=== PATIENT | male | born 1990 | race Two or more races ===

== ENCOUNTER 2021-01-19 18:53 | Emergency (ER) | payer MEDICAID, OTHER ==
[~2021-01-19] VITALS: Ht 167.6 cm; Wt 63.5 kg
[2021-01-19] MEDS ORDERED: ONDANSETRON HCL 4 MG/2 ML VIAL IV ONE (19:30)
[2021-01-19] MEDS ORDERED: SODIUM CHLORIDE 0.9% 3,000 ML IV ONE (19:30)
[2021-01-19] MEDS ORDERED: SODIUM CHLORIDE 0.9% 1,000 ML IVB ONE (19:30)
[2021-01-19] MEDS ORDERED: LORazepam 2MG/ML-1ML VIAL IV ONE (19:30)
[2021-01-19 20:15] VITALS: BP 113/61
[2021-01-19 21:32] LABS: Basophils # (auto) 0.1 10 ^3/uL (0-0.2); Basophils % (auto) 0.8 % (0.0-2.0); Eosinophils # (auto) 0.1 10 ^3/uL (0-0.8); Eosinophils % (auto) 0.9 % (0.0-7.0); Hematocrit 44.7 % (41.0-53.0); Hemoglobin 15.7 g/dL (13.5-17.5); Lymphocytes # (auto) 3.5 10 ^3/uL (0.4-5.4); Lymphocytes % (auto) 29.8 % (10.0-50.0); Mean Corpuscular Hemoglobin 33.2 pg (28.0-32.0); Mean Corpuscular Hgb Conc. 35.1 g/dL (32.0-36.0); Mean Corpuscular Volume 94.6 fL (80.0-100.0); Monocytes # (auto) 0.5 10 ^3/uL (0-1.3); Monocytes % (auto) 4.1 % (0.0-12.0); Neutrophils # (auto) 7.5 10 ^3/uL (1.6-8.6); Neutrophils % (auto) 64.4 % (37.0-80.0); Red Blood Cells 4.73 10^6/uL (4.5-5.90); Red Cell Distribution Width 12.8 % (11.8-14.3); White Blood Cell 11.6 10^3/uL (4.4-10.8)
[2021-01-19 21:42] LABS: Albumin 3.9 g/dL (3.4-5.0); Calcium 8.2 mg/dL (8.5-10.1); Potassium 3.7 mmol/L (3.5-5.1)
[2021-01-19 21:44] LABS: Salicylate 4.1 mg/dL (2.8-20.0)
[2021-01-19 21:47] LABS: BUN/Creatinine Ratio 9.4; Bilirubin, Total 0.3 mg/dL (0.2-1.0); Total Protein 7.3 g/dL (6.4-8.2)
[2021-01-19 21:49] LABS: Acetaminophen < 2.0 ug/mL (10-30)
[2021-01-19] MEDS ORDERED: PRENATAL VITAMIN TAB PO ONE (22:45)
[2021-01-19 23:43] LABS: Amphetamine Screen, Urine NEGATIVE (NEGATIVE); Barbiturate Scree,Urine NEGATIVE (NEGATIVE); Benzodiazephine Screen, Urine NEGATIVE (NEGATIVE); Cannabinoid Screen, Urine POSITIVE (NEGATIVE); Cocaine Screen, Urine NEGATIVE (NEGATIVE); Opiate Scree,Urine NEGATIVE (NEGATIVE); Phencyclidine Screen, Urine NEGATIVE (NEGATIVE)
== END 2021-01-19 23:50 | disposition left against medical advice (07) ==
LOC: EDBD 18:53 → ER 18:59
DX: S00.81XA Abrasion of other part of head, initial encounter (principal); F10.129 Alcohol abuse with intoxication, unspecified; R27.0 Ataxia, unspecified; Y90.8 Blood alcohol level of 240 mg/100 ml or more; X58.XXXA Exposure to other specified factors, initial encounter; Y93.89 Activity, other specified; Y92.89 Other specified places as the place of occurrence of the external cause; Y99.8 Other external cause status
CPT/HCPCS: 36415; 80053; 80307; 80320; 80329; 85025; 96361; 96374; 96375; 99284; J2060; J2405

== ENCOUNTER 2022-07-13 19:10 | Emergency (ER) | payer MEDICAID ==
[~2022-07-13] VITALS: Ht 175.3 cm; Wt 73.0 kg
[2022-07-13 21:27] LABS: Basophils # (auto) 0.1 10 ^3/uL (0-0.2); Basophils % (auto) 0.9 % (0.0-2.0); Eosinophils # (auto) 0.2 10 ^3/uL (0-0.8); Nucleated Red Blood Cells % 0.1 %
[2022-07-13 21:29] LABS: Hematocrit 45.1 % (41.0-53.0); Hemoglobin 15.8 g/dL (13.5-17.5); Lymphocytes % (auto) 39.8 % (10.0-50.0); Mean Corpuscular Hemoglobin 34.8 pg (28.0-32.0); Mean Corpuscular Volume 99.4 fL (80.0-100.0); Monocytes # (auto) 0.4 10 ^3/uL (0-1.3); Monocytes % (auto) 4.9 % (0.0-12.0); Neutrophils # (auto) 3.9 10 ^3/uL (1.6-8.6); Neutrophils % (auto) 51.4 % (37.0-80.0); Red Blood Cells 4.54 10^6/uL (4.5-5.90); Red Cell Distribution Width 14.8 % (11.8-14.3); White Blood Cell 7.6 10^3/uL (4.4-10.8)
[2022-07-13 21:35] LABS: BUN/Creatinine Ratio 12.1; Calcium 8.8 mg/dL (8.5-10.1); Potassium 3.5 mmol/L (3.5-5.1)
[2022-07-13 21:40] LABS: Bilirubin, Total 0.2 mg/dL (0.2-1.0); Total Protein 7.4 g/dL (6.4-8.2)
[2022-07-14 05:13] VITALS: BP 127/77
[2022-07-14 05:25] LABS: Urine Blood Negative /uL (Negative); Urine Specific Gravity 1.019 (1.001-1.035)
[2022-07-14 05:57] LABS: Amphetamine Screen, Urine NEGATIVE (NEGATIVE); Barbiturate Scree,Urine NEGATIVE (NEGATIVE); Cannabinoid Screen, Urine POSITIVE (NEGATIVE)
[2022-07-14 06:07] LABS: Benzodiazephine Screen, Urine NEGATIVE (NEGATIVE); Cocaine Screen, Urine NEGATIVE (NEGATIVE); Opiate Scree,Urine NEGATIVE (NEGATIVE); Phencyclidine Screen, Urine NEGATIVE (NEGATIVE)
== END 2022-07-14 07:05 | disposition home or self-care (01) ==
LOC: ER 19:10 → EDUNIT# 19:10 → EDBD 19:10 → ER 07-14 07:05
DX: R51.9 Headache, unspecified (principal); R07.89 Other chest pain; T51.0X1A Toxic effect of ethanol, accidental (unintentional), initial encounter; Y92.89 Other specified places as the place of occurrence of the external cause
CPT/HCPCS: 36415; 70450; 71045; 80053; 80307; 80320; 80329; 81003; 85025

== ENCOUNTER 2022-08-30 12:58 | Inpatient (IN) | payer MEDICAID ==
[~2022-08-30] VITALS: Ht 170.2 cm; Wt 80.8 kg
[2022-08-30] MEDS ORDERED: SODIUM CHLORIDE 0.9% 1,000 ML IV ONE ×2 (14:00)
[2022-08-30 14:43] LABS: Basophils # (auto) 0.1 10 ^3/uL (0-0.2); Basophils % (auto) 0.7 % (0.0-2.0); Eosinophils # (auto) 0 10 ^3/uL (0-0.8); Eosinophils % (auto) 0.1 % (0.0-7.0); Hematocrit 38.7 % (41.0-53.0); Hemoglobin 13.4 g/dL (13.5-17.5); Lymphocytes # (auto) 0.6 10 ^3/uL (0.4-5.4); Lymphocytes % (auto) 6.1 % (10.0-50.0); Mean Corpuscular Hemoglobin 33.8 pg (28.0-32.0); Mean Corpuscular Hgb Conc. 34.5 g/dL (32.0-36.0); Mean Corpuscular Volume 97.9 fL (80.0-100.0); Monocytes # (auto) 0.6 10 ^3/uL (0-1.3); Monocytes % (auto) 5.8 % (0.0-12.0); Neutrophils # (auto) 8.7 10 ^3/uL (1.6-8.6); Neutrophils % (auto) 87.3 % (37.0-80.0); Nucleated Red Blood Cells % 0.1 %; Red Blood Cells 3.95 10^6/uL (4.5-5.90); Red Cell Distribution Width 14.4 % (11.8-14.3)
[2022-08-30] MEDS ORDERED: LORazepam 2MG/ML-1ML VIAL ONE (15:22)
[2022-08-30 15:27] LABS: Albumin 3.6 g/dL (3.4-5.0); BUN/Creatinine Ratio 13.2 (10.0-20.0); Calcium 9.6 mg/dL (8.5-10.1); Potassium 3.2 mmol/L (3.5-5.1)
[2022-08-30 15:30] LABS: Bilirubin, Total 0.8 mg/dL (0.2-1.0); Total Protein 7.5 g/dL (6.4-8.2)
[2022-08-30] MEDS ORDERED: LORazepam 2MG/ML-1ML VIAL IV ONE ×2 (15:30→18:00)
[2022-08-30] MEDS ORDERED: DOCUSATE SOD 100 MG CAP PO PRN (18:45)
[2022-08-30] MEDS ORDERED: POTASSIUM CHL 20 Meq TABLET PO ONE (18:45)
[2022-08-30] MEDS ORDERED: ONDANSETRON HCL 4 MG/2 ML VIAL IV PRN (18:45)
[2022-08-30] MEDS ORDERED: LORazepam 2MG/ML-1ML VIAL IV PRN (18:45)
[2022-08-30] MEDS: SODIUM CHLORIDE 0.9% 1,000 ML IV SCH (19:13)
[2022-08-30] MEDS: MUPIROCIN 2% OINT 15gm or 22gm TOP SCH (22:00)
[2022-08-31] MEDS: SODIUM CHLORIDE 0.9% 1,000 ML IV SCH ×3 (03:05→19:54)
[2022-08-31 04:32] LABS: Alcohol, Urine < 3.0 mg/dL (0-10); Amphetamine Screen, Urine NEGATIVE (NEGATIVE); Barbiturate Scree,Urine NEGATIVE (NEGATIVE); Benzodiazephine Screen, Urine NEGATIVE (NEGATIVE); Cannabinoid Screen, Urine POSITIVE (NEGATIVE); Cocaine Screen, Urine NEGATIVE (NEGATIVE)
[2022-08-31 04:39] LABS: Opiate Scree,Urine NEGATIVE (NEGATIVE); Phencyclidine Screen, Urine NEGATIVE (NEGATIVE)
[2022-08-31 05:00] LABS: Urine Bacteria FEW /hpf (None Seen); Urine Blood Negative /uL (Negative); Urine Mucus FEW (None Seen); Urine Specific Gravity 1.021 (1.001-1.035); Urine Sperm PRESENT /hpf (None Seen); Urine WBC 4 /hpf (0 - 3)
[2022-08-31 05:44] LABS: Eosinophils # (auto) 0.1 10 ^3/uL (0-0.8); Eosinophils % (auto) 1.5 % (0.0-7.0); Hemoglobin 12.6 g/dL (13.5-17.5); Monocytes # (auto) 0.7 10 ^3/uL (0-1.3)
[2022-08-31 05:46] LABS: Basophils # (auto) 0 10 ^3/uL (0-0.2); Basophils % (auto) 0.5 % (0.0-2.0); Hematocrit 36.3 % (41.0-53.0); Lymphocytes # (auto) 0.9 10 ^3/uL (0.4-5.4); Lymphocytes % (auto) 11.9 % (10.0-50.0); Mean Corpuscular Hemoglobin 34.6 pg (28.0-32.0); Mean Corpuscular Hgb Conc. 34.8 g/dL (32.0-36.0); Mean Corpuscular Volume 99.2 fL (80.0-100.0); Monocytes % (auto) 8.7 % (0.0-12.0); Neutrophils # (auto) 6.2 10 ^3/uL (1.6-8.6); Neutrophils % (auto) 77.4 % (37.0-80.0); Red Blood Cells 3.65 10^6/uL (4.5-5.90); Red Cell Distribution Width 14.2 % (11.8-14.3)
[2022-08-31] MEDS: NEOMYCIN-POLYM-HC 1% OTIC(EAR) SOLN 10ML RIGHT EAR SCH ×4 (06:00→18:00)
[2022-08-31 06:05] LABS: Calcium 8.5 mg/dL (8.5-10.1); Potassium 3.3 mmol/L (3.5-5.1)
[2022-08-31 06:10] LABS: BUN/Creatinine Ratio 12.7 (10.0-20.0); Bilirubin, Total 1.2 mg/dL (0.2-1.0); Total Protein 6.5 g/dL (6.4-8.2)
[2022-08-31] MEDS: cefTRIAXone 1GM/50ML D5W 50 ML IV SCH (09:00)
[2022-08-31] MEDS: PANTOPRAZOLE 40 MG/10 ML VIAL INJ IV SCH (10:33)
[2022-08-31] MEDS: MUPIROCIN 2% OINT 15gm or 22gm TOP SCH ×2 (12:25→22:10)
[2022-08-31] MEDS: MORPHINE SULFATE INJ 2 MG/ml SYRG IV PRN ×2 (13:17→22:11)
[2022-08-31] MEDS: NICOTINE 21MG/24 HR TOPICAL PATCH TD SCH (13:18)
[2022-08-31 22:00] VITALS: BP 121/78
[2022-09-01] MEDS: SODIUM CHLORIDE 0.9% 1,000 ML IV SCH ×3 (04:51→21:01)
[2022-09-01 05:00] VITALS: BP 111/68
[2022-09-01] MEDS: NEOMYCIN-POLYM-HC 1% OTIC(EAR) SOLN 10ML RIGHT EAR SCH ×4 (06:00→18:00)
[2022-09-01 09:11] VITALS: BP 108/62
[2022-09-01] MEDS: PANTOPRAZOLE 40 MG/10 ML VIAL INJ IV SCH (10:02)
[2022-09-01] MEDS: cefTRIAXone 1GM/50ML D5W 50 ML IV SCH (10:02)
[2022-09-01] MEDS: MUPIROCIN 2% OINT 15gm or 22gm TOP SCH ×2 (10:03→21:01)
[2022-09-01] MEDS: NICOTINE 21MG/24 HR TOPICAL PATCH TD SCH (10:12)
[2022-09-01 13:00] VITALS: BP 126/77
[2022-09-01 17:00] VITALS: BP 124/84
[2022-09-01 22:00] VITALS: BP 130/78
[2022-09-02 05:00] VITALS: BP 118/71
[2022-09-02] MEDS: NEOMYCIN-POLYM-HC 1% OTIC(EAR) SOLN 10ML RIGHT EAR SCH ×5 (06:00→23:40)
[2022-09-02] MEDS: SODIUM CHLORIDE 0.9% 1,000 ML IV SCH ×3 (06:38→21:15)
[2022-09-02 09:00] VITALS: BP 113/71
[2022-09-02] MEDS: cefTRIAXone 1GM/50ML D5W 50 ML IV SCH (10:03)
[2022-09-02] MEDS: PANTOPRAZOLE 40 MG/10 ML VIAL INJ IV SCH (10:03)
[2022-09-02] MEDS: NICOTINE 21MG/24 HR TOPICAL PATCH TD SCH (10:04)
[2022-09-02] MEDS: MUPIROCIN 2% OINT 15gm or 22gm TOP SCH ×2 (10:05→21:15)
[2022-09-02] MEDS ORDERED: DIVA1TAB58 PO (12:43)
[2022-09-02 13:00] VITALS: BP 126/77
[2022-09-02 16:32] VITALS: BP 118/70
[2022-09-02 17:00] VITALS: BP 134/98
[2022-09-02 21:51] VITALS: BP 141/87
[2022-09-03 05:00] VITALS: BP 114/65
[2022-09-03] MEDS: SODIUM CHLORIDE 0.9% 1,000 ML IV SCH (05:11)
[2022-09-03] MEDS: NEOMYCIN-POLYM-HC 1% OTIC(EAR) SOLN 10ML RIGHT EAR SCH ×2 (05:11→12:00)
[2022-09-03 09:00] VITALS: BP 122/80
[2022-09-03] MEDS: cefTRIAXone 1GM/50ML D5W 50 ML IV SCH (09:29)
[2022-09-03] MEDS: NICOTINE 21MG/24 HR TOPICAL PATCH TD SCH (09:30)
[2022-09-03] MEDS: MUPIROCIN 2% OINT 15gm or 22gm TOP SCH (09:30)
[2022-09-03] MEDS: PANTOPRAZOLE 40 MG/10 ML VIAL INJ IV SCH (09:30)
== END 2022-09-03 13:37 | disposition home or self-care (01) | DRG 53 ==
LOC: EDBD 12:58 → ER 12:58 → TELE 18:32 → CENTRAL 08-31 17:20 → TELE-EAST 08-31 17:45
PROVIDERS: ADMIT Nurse Practitioner Family; ATTEND Internal Medicine
PROC: 4A00X4Z Measurement of Central Nervous Electrical Activity, External Approach (ICD-10-PCS; principal; 2022-08-31)
DX: G40.801 Other epilepsy, not intractable, with status epilepticus (principal); G93.41 Metabolic encephalopathy; E87.1 Hypo-osmolality and hyponatremia; H92.21 Otorrhagia, right ear; E87.5 Hyperkalemia; S00.12XA Contusion of left eyelid and periocular area, initial encounter; D64.9 Anemia, unspecified; F17.210 Nicotine dependence, cigarettes, uncomplicated; H60.91 Unspecified otitis externa, right ear; S00.93XA Contusion of unspecified part of head, initial encounter; W18.39XA Other fall on same level, initial encounter; S50.02XA Contusion of left elbow, initial encounter; S50.311A Abrasion of right elbow, initial encounter; S50.312A Abrasion of left elbow, initial encounter; Z59.00 Homelessness unspecified; Z79.899 Other long term (current) drug therapy; Z91.199 Patient's noncompliance with other medical treatment and regimen due to unspecified reason; Y93.89 Activity, other specified; Y92.89 Other specified places as the place of occurrence of the external cause; Y99.8 Other external cause status
CPT/HCPCS: 36415; 70450; 73030; 80053; 80307; 80320; 81001; 85025; 95819; 96361; 96365; 96366; 96375; C9113; G0378; J0696; J2405; J7060